=== PATIENT | female | born 1995 | race African-American/Black ===

== ENCOUNTER 2017-04-19 11:39 | Emergency (ER) | payer OTHER ==
[~2017-04-19] VITALS: Ht 163.8 cm; Wt 59.1 kg
[~2017-04-19 11:39] MED LIST: DIFLUCAN150 MG PO; FIORICET 50-301 EACH PO; KEFLEX500 MG PO; MACROBID100 MG PO; MOTRIN600 MG PO; NOHOMEMEDS; PEN-VEE K,VEET500 MG PO; PERCOCET 5/31 TABLET PO; PROMETHAZINE HC25 M1 PO; PYRIDIUM100 MG PO
[2017-04-19 12:48] LABS: HEMATOCRIT 36.3 % (36.0-46.0); MCH 28.9 PG (29.0-34.0); MCHC 35.3 G/DL (30.0-36.0); MCV 81.9 FL (83-99); MEAN PLAT.VOLUME 9.6 uM^3 (9.5-12.4); PLATELET COUNT 290 K/uL (156-360); RBC DIS.WIDTH-CV 11.7 % (11.8-14.6); RBC DIS.WIDTH-SD 34.5 % (39-53); RED BLOOD COUNT 4.43 M/uL (3.80-5.20)
[2017-04-19 12:56] LABS: CHLORIDE 106 mEq/L (99-109); POTASSIUM 4.2 mEq/L (3.7-5.4); SODIUM 138 mEq/L (136-147)
[2017-04-19 12:57] LABS: GLUCOSE 100 mg/dL (70-99)
[2017-04-19 12:59] LABS: ANION GAP 12 MEQ/L (2-14)
[2017-04-19 13:01] LABS: GFR ESTIMATE (CALCULATED) > 59 mL/min/
[2017-04-19 13:02] LABS: UREA NITROGEN (BUN) 8 mg/dL (9-23)
[2017-04-19 13:39] LABS: ADD MIUA? YES; BILIRUBIN NEGATIVE; BLOOD LARGE; COLOR YELLOW ((YELLOW)); GLUCOSE (STRIP) NEGATIVE; KETONES 5; LEUKOCYTES LARGE; NITRITE NEGATIVE; PROTEIN (STRIP) 100; SPECIFIC GRAVITY 1.015 (1.000-1.030)
[2017-04-19 13:46] LABS: INTERNAL CONTROL VALID? YES
[2017-04-19 13:48] LABS: BACTERIA NONE SEEN /HPF; CALCIUM OXALATE CRYSTALS 4+ /HPF; EPITHELIAL CELLS 1+ /HPF; MUCUS NONE SEEN /LPF; RED BLOOD CELLS TNTC /HPF (0-5); WHITE BLOOD CELLS TNTC /HPF (0-5)
[2017-04-19] MEDS ORDERED: MACROBID100 MG PO (14:17)
[2017-04-19] MEDS ORDERED: PYRIDIUM200 MG PO (14:17)
[2017-04-19 14:26] VITALS: BP 96/58
== END 2017-04-19 14:26 | disposition home or self-care (01) ==
LOC: EME 11:39
PROVIDERS: Physician Assistant
DX: N39.0 Urinary tract infection, site not specified (principal); F17.200 Nicotine dependence, unspecified, uncomplicated; Z88.0 Allergy status to penicillin
CPT/HCPCS: 80048; 81003; 84703; 85027; 99281; 99283